=== PATIENT | male | born 1970 | race Caucasian/White ===

== ENCOUNTER 2024-08-30 20:10 | Emergency (ER) | payer SELFPAY ==
[~2024-08-30] VITALS: Ht 172.7 cm; Wt 70.0 kg
[2024-08-30 20:17] VITALS: TEMP 37; O2SAT 98
[2024-08-30] MEDS: HYDROCODONE/ACETAMINOPHEN 10/325MG TABLET PO ONE (21:34)
[2024-08-30] MEDS ORDERED: BACITRACIN ZINC OINT UDPKT TOP ONE (23:15)
[2024-08-31] MEDS: TETANUS, DIPHTHERIA, PERTUSSIS VAC/PF 0.5ML (>10YR OLD) IM ONE (00:27)
[2024-08-31] MEDS: LIDOCAINE HCL 1% 20ML VIAL INFIL ONE (00:28)
[2024-08-31] MEDS ORDERED: ACET-2708 MT (00:33)
[2024-08-31 00:56] VITALS: BP 114/74; PULSE 84; RESP 16; O2SAT 97
== END 2024-08-31 00:59 | disposition home or self-care (01) ==
LOC: ER 20:10
DX: S01.81XA Laceration without foreign body of other part of head, initial encounter (principal); Z79.899 Other long term (current) drug therapy; V09.9XXA Pedestrian injured in unspecified transport accident, initial encounter; Y93.89 Activity, other specified; Y92.89 Other specified places as the place of occurrence of the external cause; Y99.8 Other external cause status
CPT/HCPCS: 12015; 70486; 90471; 90715; 99285